=== PATIENT | male | born 1965 | race Caucasian/White ===

== ENCOUNTER 2016-08-24 08:44 | Inpatient (IN) | payer OTHER ==
[~2016-08-24] VITALS: Ht 177.8 cm; Wt 74.0 kg
[2016-08-24 09:59] LABS: BASOPHIL COUNT 0.1 K/uL (0-0.1); EOSINOPHIL (%) 0.4 % (0-5); EOSINOPHIL COUNT 0.1 K/uL (0-0.3); HEMATOCRIT 39.2 % (38.0-50.0); IMMATURE GRANULOCYTE (%) 1.7 % (0.0-0.7); LYMPHOCYTE COUNT 1.7 K/uL (1.0-2.8); MCH 30.3 PG (29.0-34.0); MCHC 33.9 G/DL (30.0-36.0); MCV 89.3 FL (86-99); MEAN PLAT.VOLUME 8.5 uM^3 (9.0-12.4); MONOCYTE (%) 6.9 % (3-12); MONOCYTE COUNT 1.3 K/uL (0-0.8); NEUTROPHIL (%) 81.5 % (45-76); NEUTROPHIL COUNT 14.8 K/uL (1.8-6.4); PLATELET COUNT 377 K/uL (156-360); RBC DIS.WIDTH-CV 12.6 % (11.8-14.6); RBC DIS.WIDTH-SD 40.4 % (39-53); RED BLOOD COUNT 4.39 M/uL (4.00-5.50); WHITE BLOOD COUNT 18.2 K/uL (4.1-10.2)
[2016-08-24 10:24] LABS: ANION GAP 7 MEQ/L (2-14); CHLORIDE 103 MEQ/L (99-109); SAMPLE HEMOLYSIS CHECK 0; SAMPLE ICTERIC CHECK 0; SAMPLE LIPEMIA CHECK 0; SODIUM 136 MEQ/L (136-147); TOTAL BILIRUBIN 0.7 MG/DL (0.0-1.0)
[2016-08-24 10:30] LABS: ALKALINE PHOSPHATASE 56 IU/L (3-129); GFR ESTIMATE (CALCULATED) > 59 mL/min/; GLUCOSE 82 mg/dL (70-99); UREA NITROGEN (BUN) 13 mg/dL (9-23)
[2016-08-24] MEDS ORDERED: ADVIL200 MG PO (11:08)
[2016-08-25] VITALS (7 sets, daily range): BP systolic 95–123; BP diastolic 57–78
[2016-08-25 05:47] LABS: EOSINOPHIL (%) 0 % (0-5); HEMATOCRIT 42.1 % (38.0-50.0); IMMATURE GRANULOCYTE (%) 0.2 % (0.0-0.7); IMMATURE GRANULOCYTE COUNT 0.1 K/uL; LYMPHOCYTE COUNT 1.1 K/uL (1.0-2.8); MCH 30.3 PG (29.0-34.0); MCHC 33.7 G/DL (30.0-36.0); MCV 89.8 FL (86-99); MEAN PLAT.VOLUME 9.3 uM^3 (9.0-12.4); MONOCYTE (%) 0.8 % (3-12); MONOCYTE COUNT 0.2 K/uL (0-0.8); NEUTROPHIL (%) 93.8 % (45-76); NEUTROPHIL COUNT 19.3 K/uL (1.8-6.4); PLATELET COUNT 379 K/uL (156-360); RBC DIS.WIDTH-CV 12.8 % (11.8-14.6); RBC DIS.WIDTH-SD 41.3 % (39-53); RED BLOOD COUNT 4.69 M/uL (4.00-5.50); WHITE BLOOD COUNT 20.6 K/uL (4.1-10.2)
[2016-08-25 06:27] LABS: ANION GAP 7 MEQ/L (2-14); CHLORIDE 105 MEQ/L (99-109); GFR ESTIMATE (CALCULATED) > 59 mL/min/; POTASSIUM 4.4 MEQ/L (3.7-5.4); SAMPLE HEMOLYSIS CHECK 0; SAMPLE ICTERIC CHECK 0; SAMPLE LIPEMIA CHECK 0; SODIUM 138 MEQ/L (136-147); UREA NITROGEN (BUN) 12 mg/dL (9-23)
[2016-08-25 06:28] LABS: GLUCOSE 154 mg/dL (70-99)
[2016-08-26 03:11] VITALS: BP 127/87
[2016-08-26 08:08] VITALS: BP 132/88
[2016-08-26 10:40] LABS: HBSG INDEX 0.17
[2016-08-26 10:41] LABS: HIV INDEX 0.07; HIV-1/2 AB/AG COMBO Nonreactive; HPCA INDEX 14.28
[2016-08-26 11:55] VITALS: BP 107/61
[2016-08-26 16:22] VITALS: BP 125/71
[2016-08-27 00:27] VITALS: BP 109/59
[2016-08-27 04:44] VITALS: BP 146/70
[2016-08-27 07:37] VITALS: BP 132/80
[2016-08-27] MEDS ORDERED: TYLENOL REGULA325 MG PO (14:33)
[2016-08-27] MEDS ORDERED: BENADRYL25 MG PO (14:33)
[2016-08-27] MEDS ORDERED: SENNA PLUS TAB1 EACH PO (14:33)
[2016-08-27] MEDS ORDERED: OXYCODONE HCL5 MG PO (14:34)
[2016-08-27 16:52] VITALS: BP 126/72
[2016-08-27 23:56] VITALS: BP 117/69
[2016-08-28 07:31] VITALS: BP 117/77
[2016-08-28 08:49] LABS: GFR ESTIMATE (CALCULATED) > 59 mL/min/
[2016-08-28] MEDS ORDERED: AUGMENTIN875 MG PO (08:52)
[2016-08-28] MEDS ORDERED: OXYCODONE HCL5 MG PO ×2 (08:53→09:37)
[2016-08-28 09:03] LABS: VANCOMYCIN, TROUGH 8.9 MCG/ML (10-20)
[2016-08-29] MEDS ORDERED: PERCOCET 5/31 TABLET PO (19:22)
== END 2016-08-28 10:53 | disposition home or self-care (01) | DRG 580 ==
LOC: EME 08:44 → EDOF 13:30 → 3EAST 13:30
PROVIDERS: Internal Medicine Infectious Disease; Orthopaedic Surgery; Physician Assistant
DX: L02.413 Cutaneous abscess of right upper limb (principal); F10.99 Alcohol use, unspecified with unspecified alcohol-induced disorder; F17.210 Nicotine dependence, cigarettes, uncomplicated; F11.10 Opioid abuse, uncomplicated; L03.113 Cellulitis of right upper limb; F12.90 Cannabis use, unspecified, uncomplicated
CPT/HCPCS: 71020; 73201; 80048; 80053; 80202; 82565; 83605; 85025; 86703; 86803; 87040; 87070; 87075; 87076; 87185; 87205; 87340; 93005; 99281; 99285; J0131; J0330; J0690; J0696; J1100; J1170; J1885; J2250; J2405; J3370; J7050; J7120

== ENCOUNTER 2016-08-29 16:56 | Emergency (ER) | payer OTHER ==
[~2016-08-29] VITALS: Ht 177.8 cm; Wt 79.8 kg
[~2016-08-29 16:56] MED LIST: ADVIL200 MG PO; AUGMENTIN875 MG PO; BENADRYL25 MG PO; OXYCODONE HCL5 MG PO; SENNA PLUS TAB1 EACH PO; TYLENOL REGULA325 MG PO
[2016-08-29] MEDS ORDERED: PERCOCET 5/31 TABLET PO (19:22)
[2016-08-29 19:52] VITALS: BP 00/0
== END 2016-08-29 20:03 | disposition home or self-care (01) ==
LOC: EME 16:56
DX: Z48.817 Encounter for surgical aftercare following surgery on the skin and subcutaneous tissue (principal); L02.413 Cutaneous abscess of right upper limb; Z76.0 Encounter for issue of repeat prescription; F17.200 Nicotine dependence, unspecified, uncomplicated
CPT/HCPCS: 99281; 99284

== ENCOUNTER 2016-09-07 14:01 | Emergency (ER) | payer OTHER ==
[~2016-09-07] VITALS: Ht 180.3 cm; Wt 75.2 kg
[~2016-09-07 14:01] MED LIST changes: +PERCOCET 5/31 TABLET PO
[2016-09-07 15:00] VITALS: BP 120/79
[2016-09-07] MEDS ORDERED: BACTRIM,SEPT1 TABLET PO (15:07)
[2016-09-07] MEDS ORDERED: INDOCIN50 MG PO (15:07)
[2016-09-07] MEDS ORDERED: AUGMENTIN875 MG PO (15:07)
== END 2016-09-07 15:31 | disposition home or self-care (01) ==
LOC: EME 14:01
DX: G89.18 Other acute postprocedural pain (principal); T81.4XXA Infection following a procedure, initial encounter; F17.200 Nicotine dependence, unspecified, uncomplicated
CPT/HCPCS: 99281; 99283

== ENCOUNTER 2016-09-13 17:04 | Emergency (ER) | payer OTHER ==
[~2016-09-13] VITALS: Ht 177.8 cm; Wt 74.5 kg
[~2016-09-13 17:04] MED LIST changes: +BACTRIM,SEPT1 TABLET PO; +INDOCIN50 MG PO
[2016-09-13 17:53] LABS: EOSINOPHIL (%) 1.7 % (0-5); EOSINOPHIL COUNT 0.1 K/uL (0-0.3); HEMATOCRIT 40.6 % (38.0-50.0); IMMATURE GRANULOCYTE (%) 0.3 % (0.0-0.7); INSTRUMENT ABS NEUTROPHIL CT 5.4 K/uL; LYMPHOCYTE COUNT 1.5 K/uL (1.0-2.8); MCHC 32.3 G/DL (30.0-36.0); MCV 89.8 FL (86-99); MEAN PLAT.VOLUME 8.4 uM^3 (9.0-12.4); MONOCYTE (%) 5.4 % (3-12); MONOCYTE COUNT 0.4 K/uL (0-0.8); NEUTROPHIL (%) 72.2 % (45-76); NEUTROPHIL COUNT 5.4 K/uL (1.8-6.4); PLATELET COUNT 307 K/uL (156-360); RBC DIS.WIDTH-CV 12.8 % (11.8-14.6); RBC DIS.WIDTH-SD 42.2 % (39-53); RED BLOOD COUNT 4.52 M/uL (4.00-5.50)
[2016-09-13 17:54] LABS: WHITE BLOOD COUNT 7.4 K/uL (4.1-10.2)
[2016-09-13 18:01] LABS: CHLORIDE 106 mEq/L (99-109); POTASSIUM 4.6 mEq/L (3.7-5.4); SODIUM 140 mEq/L (136-147)
[2016-09-13 18:03] LABS: GLUCOSE 124 mg/dL (70-99)
[2016-09-13 18:03] LABS: ADD MIUA? YES; BILIRUBIN NEGATIVE; BLOOD SMALL; COLOR YELLOW ((YELLOW)); GLUCOSE (STRIP) NEGATIVE; KETONES NEGATIVE; LEUKOCYTES NEGATIVE; NITRITE NEGATIVE; PROTEIN (STRIP) NEGATIVE; SPECIFIC GRAVITY 1.011 (1.000-1.030)
[2016-09-13 18:05] LABS: ANION GAP 9 MEQ/L (2-14)
[2016-09-13 18:07] LABS: GFR ESTIMATE (CALCULATED) > 59 mL/min/
[2016-09-13 18:08] LABS: UREA NITROGEN (BUN) 17 mg/dL (9-23)
[2016-09-13 18:09] LABS: BACTERIA NONE SEEN /HPF; EPITHELIAL CELLS RARE /HPF; MUCUS TRACE /LPF; UCUL ADDED? NO; WHITE BLOOD CELLS 0-5 /HPF (0-5)
[2016-09-13 18:30] VITALS: BP 120/62
== END 2016-09-13 18:55 | disposition home or self-care (01) ==
LOC: EME 17:04
DX: S51.811D Laceration without foreign body of right forearm, subsequent encounter (principal); F17.200 Nicotine dependence, unspecified, uncomplicated; F11.20 Opioid dependence, uncomplicated
CPT/HCPCS: 80048; 81003; 83605; 85025; 99281; 99284

== ENCOUNTER 2017-03-10 17:09 | Emergency (ER) | payer OTHER ==
[~2017-03-10] VITALS: Ht 177.8 cm; Wt 71.5 kg
[2017-03-10 17:57] LABS: HEMATOCRIT 43.2 % (38.0-50.0); MCHC 33.8 G/DL (30.0-36.0); MCV 91.7 FL (86-99); MEAN PLAT.VOLUME 8.4 uM^3 (9.0-12.4); PLATELET COUNT 317 K/uL (156-360); RBC DIS.WIDTH-CV 12.5 % (11.8-14.6); RBC DIS.WIDTH-SD 42.5 % (39-53); RED BLOOD COUNT 4.71 M/uL (4.00-5.50); WHITE BLOOD COUNT 9.9 K/uL (4.1-10.2)
[2017-03-10 18:08] LABS: CHLORIDE 104 mEq/L (99-109); POTASSIUM 4.3 mEq/L (3.7-5.4); SODIUM 139 mEq/L (136-147)
[2017-03-10 18:09] LABS: GLUCOSE 113 mg/dL (70-99)
[2017-03-10 18:11] LABS: ANION GAP 10 MEQ/L (2-14)
[2017-03-10 18:13] LABS: GFR ESTIMATE (CALCULATED) > 59 mL/min/
[2017-03-10 18:14] LABS: UREA NITROGEN (BUN) 8 mg/dL (9-23)
[2017-03-10] MEDS ORDERED: BACTRIM,SEPT1 TABLET PO (20:14)
[2017-03-10 20:49] VITALS: BP 110/60
== END 2017-03-10 20:56 | disposition home or self-care (01) ==
LOC: EME 17:09
PROVIDERS: Physician Assistant
DX: L03.115 Cellulitis of right lower limb (principal); F17.200 Nicotine dependence, unspecified, uncomplicated
CPT/HCPCS: 73630; 80048; 83605; 85027; 87040; 99281; 99285; J0696; J3010; J7030; J7050